=== PATIENT | male | born 1950 | race Caucasian/White ===

== ENCOUNTER → 2016-11-28 | Outpatient (CLI) | payer BC ==
[~2016-11-28] MED LIST: ASCO1CAP3 PO; ASPI81TA28 PO; CLR10 PO; CYAN500T PO
--- NOTE | 2016-11-28 19:11 | ECHOCARDIOGRAM REPORT ---
*NOTICE TO RECEIVING DEMOCRAT AGENCY This information is strictly Confidential and protected under [place] law. [place] law prohibits you from making any further disclosure of this information unless further disclosure is expressly permitted by the written consent of the person to whom it pertains or is authorized by law. A general authorization for the release of medical or other information is not sufficient for this purpose. Hospital accepts no responsibility if the information is made available to any other person, INCLUDING THE PATIENT. Interpretation Summary * Name: YESSI LOPEZ Study Date: 11/28/2016 01:44 PM * Patient Location: [facility], [place] HR: 76 * : 1950 (M/d/yyyy) Gender: Male Height: 70 in * Age: 66 yrs Ethnicity: [place] Weight: 194 lb * Ordering Physician: Delfino Willams * Referring Physician: Delfino Willams * Performed By: Camelia Keller RCS * * Reason For Study: Abnormal ECG * BSA: 2.1 m2 * The study was technically adequate. * -- Conclusions -- * There is mild concentric left ventricular hypertrophy. * The left ventricular wall motion is normal. * Aortic valve sclerosis moderate, without significant aortic valvular stenosis. * Diastolic dysfunction, Grade II (pseudonormalization pattern). * The left ventricle is hyperdynamic. * The LV Ejection Fraction = >70 %. Procedure Details * A complete two-dimensional transthoracic echocardiogram was performed (2D, M-mode, Doppler and color flow Doppler). Left Ventricle * The left ventricle is normal in size. * There is mild concentric left ventricular hypertrophy. * The left ventricle is hyperdynamic. * Ejection Fraction = >70 %. * The left ventricular wall motion is normal. Right Ventricle * The right ventricle is normal size. * The right ventricular systolic function is normal as assessed by tricuspid annular plane systolic excursion (TAPSE) (normal >1.5 cm). Atria * The left atrial size is normal. * Right atrial size is normal. * There is no evidence of atrial septal defect, but resolution does not allow assessment for a patent foramen ovale. Mitral Valve * The mitral valve is normal. * There is no mitral valve stenosis. * Significant mitral regurgitation is absent. Tricuspid Valve * The tricuspid valve is normal. * There is no tricuspid stenosis. * Significant tricuspid regurgitation is absent. * Doppler findings do not suggest pulmonary hypertension. Aortic Valve * The aortic valve is trileaflet. * Aortic valve sclerosis moderate, without significant aortic valvular stenosis. * Aortic stenosis is absent. * There is no significant aortic regurgitation. Pulmonic Valve * The pulmonary valve is not well seen, but the Doppler examination is normal without significant regurgitation or stenosis. Great Vessels * The aortic root and proximal ascending aorta are normal sized. Pericardium/Pleural * There is no pericardial effusion. Great Vessels * Normal inferior vena cava diameter and respiratory variation suggests normal central venous pressure. Left Ventricular Diastolic Function * Diastolic dysfunction, Grade II (pseudonormalization pattern). MMode 2D Measurements and Calculations IVSd 1.1 cm LVIDd 5.1 cm LVIDs 2.6 cm LVPWd 1.3 cm IVS/LVPW 0.88 FS 48.7 % EDV(Teich) 125.3 ml ESV(Teich) 25.3 ml EF(Teich) 79.8 % EDV(cubed) 134.7 ml ESV(cubed) 18.2 ml EF(cubed) 86.5 % LV mass(C)d 243.2 grams LV mass(C)dI 118.0 grams/m\S\2 SV(Teich) 100.0 ml SI(Teich) 48.6 ml/m\S\2 SV(cubed) 116.6 ml SI(cubed) 56.6 ml/m\S\2 Ao root diam 3.5 cm Ao root area 9.4 cm\S\2 LVOT diam 2.0 cm LVOT area 3.1 cm\S\2 LVAd ap4 33.0 cm\S\2 LVLd ap4 8.9 cm EDV(MOD-sp4) 100.0 ml EDV(sp4-el) 103.4 ml LVAs ap4 13.8 cm\S\2 LVLs ap4 6.8 cm ESV(MOD-sp4) 25.3 ml ESV(sp4-el) 23.8 ml EF(MOD-sp4) 74.7 % EF(sp4-el) 77.0 % LVAd ap2 30.8 cm\S\2 LVLd ap2 8.2 cm EDV(MOD-sp2) 94.1 ml EDV(sp2-el) 98.7 ml LVAs ap2 17.3 cm\S\2 LVLs ap2 7.4 cm ESV(MOD-sp2) 35.5 ml ESV(sp2-el) 34.5 ml EF(MOD-sp2) 62.3 % EF(sp2-el) 65.1 % LVLd %diff -9.38 % EDV(MOD-bp) 101.7 ml LVLs %diff 7.2 % ESV(MOD-bp) 30.4 ml EF(MOD-bp) 70.1 % SV(MOD-sp4) 74.7 ml SI(MOD-sp4) 36.3 ml/m\S\2 SV(MOD-sp2) 58.7 ml SI(MOD-sp2) 28.5 ml/m\S\2 SV(MOD-bp) 71.2 ml SI(MOD-bp) 34.6 ml/m\S\2 SV(sp4-el) 79.6 ml SI(sp4-el) 38.6 ml/m\S\2 SV(sp2-el) 64.3 ml SI(sp2-el) 31.2 ml/m\S\2 Doppler Measurements and Calculations MV E max maureen 102.3 cm/sec MV A max maureen 80.0 cm/sec MV E/A 1.3 MV dec time 0.20 sec Ao V2 max 232.4 cm/sec Ao max PG 21.6 mmHg Ao max PG (full) 12.0 mmHg Ao V2 mean 146.7 cm/sec Ao mean PG 9.8 mmHg Ao mean PG (full) 5.8 mmHg Ao V2 VTI 44.9 cm MINOO(I,A) 2.0 cm\S\2 MINOO(I,D) 2.0 cm\S\2 MINOO(V,A) 2.1 cm\S\2 MINOO(V,D) 2.1 cm\S\2 LV V1 max PG 9.6 mmHg LV V1 mean PG 4.0 mmHg LV V1 max 154.8 cm/sec LV V1 mean 89.2 cm/sec LV V1 VTI 28.9 cm SV(Ao) 420.9 ml SI(Ao) 204.3 ml/m\S\2 SV(LVOT) 89.4 ml SI(LVOT) 43.4 ml/m\S\2
== END | disposition home or self-care (01) ==
LOC: C.CPL 13:32
PROVIDERS: ATTEND Family Medicine
DX: R94.31 Abnormal electrocardiogram [ECG] [EKG] (principal)